=== PATIENT | female | born 1995 | race Asian ===

== ENCOUNTER 2017-03-04 22:38 | Outpatient (CLI) | payer OTHER ==
[2017-03-05 00:07] VITALS: BP 94/52
== END 2017-03-05 00:30 | disposition home or self-care (01) ==
LOC: LDRP-OP 22:38 → 2WEST 22:39 → LDRP-OP 04-03 12:34
DX: O26.93 Pregnancy related conditions, unspecified, third trimester (principal); Z3A.40 40 weeks gestation of pregnancy
CPT/HCPCS: 59025; G0378

== ENCOUNTER 2017-03-11 06:58 | Inpatient (IN) | payer OTHER ==
[2017-03-11] VITALS (26 sets, daily range): BP systolic 88–120; BP diastolic 50–82
[~2017-03-11] VITALS: Ht 154.9 cm; Wt 70.8 kg
[2017-03-11] MEDS ORDERED: PRENATAL TABLE1 EAC3 PO (07:42)
[2017-03-11 09:32] LABS: EOSINOPHIL (%) 1.1 % (0-5); EOSINOPHIL COUNT 0.1 K/uL (0-0.3); IMMATURE GRANULOCYTE (%) 2.6 % (0.0-0.7); IMMATURE GRANULOCYTE COUNT 0.3 K/uL; INSTRUMENT ABS NEUTROPHIL CT 8.8 K/uL; LYMPHOCYTE COUNT 1.7 K/uL (1.0-2.8); MCH 31.3 PG (29.0-34.0); MCV 94.8 FL (83-99); MEAN PLAT.VOLUME 10.8 uM^3 (9.5-12.4); MONOCYTE (%) 7.1 % (3-12); MONOCYTE COUNT 0.8 K/uL (0-0.8); NEUTROPHIL (%) 74.5 % (45-76); NEUTROPHIL COUNT 8.8 K/uL (1.8-6.4); PLATELET COUNT 277 K/uL (156-360); RBC DIS.WIDTH-CV 13.8 % (11.8-14.6); RBC DIS.WIDTH-SD 47.7 % (39-53); RED BLOOD COUNT 4.22 M/uL (3.80-5.20); WHITE BLOOD COUNT 11.8 K/uL (4.1-10.2)
[2017-03-11 13:48] LABS: AMPHETAMINE NEGATIVE (500 ng/mL); BARBITURATES NEGATIVE (200 ng/mL); BENZODIAZEPINES NEGATIVE (150 ng/mL); COCAINE NEGATIVE (150 ng/mL); INTERNAL CONTROLS VALID? YES; METHADONE NEGATIVE (200 ng/mL); METHAMPHETAMINE NEGATIVE (500 ng/mL); OPIATES (MORPHINE) NEGATIVE (100 ng/mL); OXYCODONE NEGATIVE (100 ng/mL); PHENCYCLIDINE NEGATIVE (25 ng/mL); PROPOXYPHENE NEGATIVE (300 ng/mL); THC CANNABINOIDS NEGATIVE (50 ng/mL); TRICYCLIC ANTIDEPRESSANTS NEGATIVE (300 ng/mL)
[2017-03-11] MEDS ORDERED: IBUPROFEN800 MG PO (21:02)
[2017-03-12 07:23] VITALS: BP 98/54
[2017-03-12 15:00] VITALS: BP 94/51
[2017-03-12 23:00] VITALS: BP 121/72
[2017-03-13 07:04] VITALS: BP 108/58
[2017-03-13 15:05] VITALS: BP 112/55
== END 2017-03-13 16:48 | disposition home or self-care (01) | DRG 775 ==
LOC: LDRP-OP 06:58 → 2WEST 06:59 → LDRP-OP 09:30 → 2WEST 20:26 → LDRP-OP 04-04 01:58
PROVIDERS: Advanced Practice Midwife
PROC: 3E0S3CZ (ICD-10-PCS; principal; 2017-03-11)
PROC: 0KQM0ZZ Repair Perineum Muscle, Open Approach (ICD-10-PCS; principal; 2017-03-11)
PROC: 3E033VJ Introduction of Other Hormone into Peripheral Vein, Percutaneous Approach (ICD-10-PCS; principal; 2017-03-11)
PROC: 10907ZC Drainage of Amniotic Fluid, Therapeutic from Products of Conception, Via Natural or Artificial Opening (ICD-10-PCS; principal; 2017-03-11)
PROC: 00HU33Z Insertion of Infusion Device into Spinal Canal, Percutaneous Approach (ICD-10-PCS; principal; 2017-03-11)
PROC: 10E0XZZ Delivery of Products of Conception, External Approach (ICD-10-PCS; principal; 2017-03-11)
DX: O70.1 Second degree perineal laceration during delivery (principal); O48.0 Post-term pregnancy; Z37.0 Single live birth; Z3A.41 41 weeks gestation of pregnancy
CPT/HCPCS: 85025; C1755; J3010; J7120